=== PATIENT | female | born 1990 | race Caucasian/White ===

== ENCOUNTER 2023-04-29 16:21 | Emergency (ER) | payer BC, SELFPAY ==
[2023-04-29 16:24] VITALS: BP 130/87
[2023-04-29 16:32] LABS: Glucose - Point of Care 69 mg/dl (70-99)
--- NOTE | 2023-04-29 16:49 | ED.GENMED ---
History of Present Illness
<Vickie Becker PA-C - Last Filed: 04/30/23 17:44>
General
Chief Complaint: Blood Sugar Problem
Source: patient
Exam Limitations: none
Time Seen by Provider: 04/29/23 16:32
Nursing documentation reviewed up to this point in time: agreed with
Travel History
Have you had any contact with someone who has COVID-19?: No
Do you have any symptoms of coronavirus? Fever > 100 degrees, chills, cough, shortness of breath, sore throat, loss of taste or smell, muscle aches, or headache?: No
History of Present Illness
History of Present Illness:
Patient is a 32-year-old female with history of type 1 diabetes with continuous glucose monitor/insulin pump presenting for evaluation of low blood sugar readings today. Patient states that she woke up this morning around 730 feeling confused. She
had an alert on her glucose monitor noting that it had failed and she had a blood sugar of 36. She then drank 2 small juice boxes. She started to feel slightly better but has been nauseous and vomiting all day. She had a very mild headache but
took a dose of Tylenol and is feeling better. Her glucose monitor has been showing blood sugar readings within the 90s for most of the day with her most recent fingerstick at home of 76. POC glucose emergency department was 69 on arrival. She
does think she is feeling better since arriving to the emergency department.
She denies any chest pain, shortness of breath, belly pain.
Last menstrual period was April 12.
Past History
<Vickie Becker PA-C - Last Filed: 04/30/23 17:44>
Past History
ED Past Medical History: IDDM
ED Past Surgical History: None
Social History
Tobacco: Non-smoker
Alcohol: None
Personal: Single
Living: with family
Employment: Employed
Family History
Family History: Diabetes
Phy Exam
<Vickie Becker PA-C - Last Filed: 04/30/23 17:44>
Physical Exam
Physical Exam:
General: Well appearing and non-toxic
HEENT: Atraumatic, normocephalic; pupils equal round reactive light bilaterally; dry mucous membranes, protecting airway
Neck: appears supple, no JVD
CV: Regular rate and rhythm, heart sounds normal, no evidence of cyanosis
Resp: No evidence of respiratory distress, lungs clear, no accessory muscle use
Abd: Soft, nontender, no rebound or guarding, non-distended
Extremities: No deformities, no evidence of cyanosis or edema
Neuro: alert and oriented person place time, speech normal, no focal neurologic deficits, no focal motor deficits
Psych: Normal affect
Skin: Intact, no rashes
Course
<Vickie Becker PA-C - Last Filed: 04/30/23 17:44>
Orders/Labs/Results
Orders:
Orders
04/29/23 16:56
0.9% Sodium Chloride 1000 ml [Nss] 1,000 ml IV BOLUS
Test Result ONCE
04/29/23 17:01
Complete Blood Count/With Diff Urgent
Comprehensive Metabolic Panel Urgent
HCG, Serum Qualitative Screen Urgent
Ondansetron Injectable [Zofran] 4 mg IV NOW STA
04/29/23 17:55
Urinalysis Reflex To Culture Urgent
Date Specimen was Collected: 04/29/23
Time Specimen was Collected: 17:54
04/29/23 17:56
0.9% Sodium Chloride 1000 ml [Nss] 1,000 ml IV BOLUS
04/29/23 17:59
Ondansetron Injectable [Zofran] 4 mg IV NOW STA
04/29/23 18:01
Ondansetron Injectable [Zofran] 4 mg .ROUTE .[facility]
Abnormal Lab Results
04/29/23 04/29/23 04/29/23
16:27 17:01 17:55
MPV 10.6 H fL
(7.4-10.4)
Absolute Lymphs (auto) 0.8 L 10^3/uL
(1.2-3.4)
Neutrophils % 85.0 H %
(42.2-75.2)
Lymphocytes % 10.8 L %
(20.5-51.1)
Creatinine 0.5 L mg/dL
(0.6-1.0)
Glucose 103 H mg/dl
(70-99)
Urine Ketones 3+ A
(Negative)
POC Glucose 69 L mg/dl
(70-99)
04/29/23 17:01
04/29/23 17:01
Vital Signs
Initial and Last Documented VS:
Initial Vital Signs
Temp Pulse Resp BP Pulse Ox
98.3 F 77 16 130/87 98
04/29/23 16:24 04/29/23 16:24 04/29/23 16:24 04/29/23 16:24 04/29/23 16:24
Last Documented Vital Signs
Temp Pulse Resp BP Pulse Ox
98.3 F 77 16 130/87 98
04/29/23 16:24 04/29/23 16:24 04/29/23 16:24 04/29/23 16:24 04/29/23 16:24
<Gera Leong DO - Last Filed: 04/30/23 21:45>
Orders/Labs/Results
Orders:
Orders
04/29/23 16:56
0.9% Sodium Chloride 1000 ml [Nss] 1,000 ml IV BOLUS
Test Result ONCE
04/29/23 17:01
Complete Blood Count/With Diff Urgent
Comprehensive Metabolic Panel Urgent
HCG, Serum Qualitative Screen Urgent
Ondansetron Injectable [Zofran] 4 mg IV NOW STA
04/29/23 17:55
Urinalysis Reflex To Culture Urgent
Date Specimen was Collected: 04/29/23
Time Specimen was Collected: 17:54
04/29/23 17:56
0.9% Sodium Chloride 1000 ml [Nss] 1,000 ml IV BOLUS
04/29/23 17:59
Ondansetron Injectable [Zofran] 4 mg IV NOW STA
04/29/23 18:01
Ondansetron Injectable [Zofran] 4 mg .ROUTE .[facility]
Abnormal Lab Results
04/29/23 04/29/23 04/29/23
16:27 17:01 17:55
MPV 10.6 H fL
(7.4-10.4)
Absolute Lymphs (auto) 0.8 L 10^3/uL
(1.2-3.4)
Neutrophils % 85.0 H %
(42.2-75.2)
Lymphocytes % 10.8 L %
(20.5-51.1)
Creatinine 0.5 L mg/dL
(0.6-1.0)
Glucose 103 H mg/dl
(70-99)
Urine Ketones 3+ A
(Negative)
POC Glucose 69 L mg/dl
(70-99)
04/29/23 17:01
04/29/23 17:01
Vital Signs
Initial and Last Documented VS:
Initial Vital Signs
Temp Pulse Resp BP Pulse Ox
98.3 F 77 16 130/87 98
04/29/23 16:24 04/29/23 16:24 04/29/23 16:24 04/29/23 16:24 04/29/23 16:24
Last Documented Vital Signs
Temp Pulse Resp BP Pulse Ox
98.3 F 77 16 130/87 98
02/03/24 16:24 04/29/23 16:24 04/29/23 16:24 04/29/23 16:24 04/29/23 16:24
<Vickie Becker PA-C - Last Filed: 04/30/23 17:44>
MDM/Problems Addressed
Differential Diagnosis Includes:
Hyperglycemia due to pump failure, dehydration, gastroenteritis,
MDM/Problems Addressed:
Patient is a 32-year-old history of type 1 diabetes with insulin pump presenting for low blood sugar readings at home. Her glucose monitor failed last night and when she awoke she had a blood sugar of 36. She drank 2 juices earlier today but has
remained very nauseous with vomiting. She has remained lethargic and feels very dehydrated. Her monitor has been corrected and has been showing glucose readings in the 90s for most of the day. Fingerstick glucose on arrival to emergency
department 69 she is feeling slightly better since arriving to emergency room. Physical exam as document above. She is hemodynamically stable on arrival to emergency department. Abdomen soft and nontender. Very dry mucous membranes. Heart
sounds normal, lungs clear. Will get basic labs, check . Start IV fluids, give 4mg zofran. Will reassess
CBC and CMP without any clinically significant abnormality. Glucose is 103. negative.
Update 5:41 PM: Patient's nausea is improved, she is drinking water and keeping it down. Given clinical appearance�will start second liter of fluids. If patient continues to go to tolerate p.o. intake, remained stable�will plan for discharge.
Patient remains stable and has not vomited since arrival to emergency department. She is tolerating p.o. liquids. She feels ready for discharge. She is stable for discharge with close return precautions, primary care follow-up. Will send
prescription for Zofran if needed for persistent nausea. She is comfortable with this plan. All questions answered.
Chronic conditions affecting care:
Type 1 diabetes mellitus
Acute Exacerbation and/or Progression of Chronic Illness:
Hypoglycemia, acute dehydration
<Vickie Becker PA-C - Last Filed: 04/30/23 17:44>
*Pulse Oximetry
Patient hypoxic: no
*Critical Care Note
Total Time (30-74mins, 75-104mins- exclusive of procedures): Not Applicable
ED Attending Note
<Vickie Becker PA-C - Last Filed: 04/30/23 17:44>
-
Portions of this chart may have been created with voice recognition software.� Occasional wrong word or��sound alike� substitutions may have occurred due to the inherent limitations of voice recognition software.
<Gera Leong DO - Last Filed: 04/30/23 21:45>
ED Attending Note
Patient seen and examined by attending physician: Yes
I performed the substantive portion of visit, reviewed & personally made and approve the management plan that is documented in note by myself or KEE.: Yes
ED Attending Note:
Patient is a 32-year-old type I diabetic who presents with nausea and vomiting as well as low blood sugar. Patient has an insulin pump and the sensor malfunction. Patient's blood sugar is increased but still with nausea and vomiting. Patient
denies abdominal pain, fever, chills. Patient denies any hematemesis, melena or hematochezia. Patient denies any chest pain or shortness of breath. Patient denies any leg pain or swelling. On physical exam the patient is a mild distress
secondary to nausea and vomiting. Patient's heart is regular lungs are clear. Abdomen soft nontender. Extremities without edema or cyanosis. Patient was given Zofran and fluids and her sugar continued to go up. Patient has very good
understanding and management of her type 1 diabetes. Patient was able to be discharged.
Discharge Plan
Departure
Patient Disposition: Home (Routine Discharge)
Date of Disposition: 04/29/23
Time of Disposition: 18:23
Patient with high blood pressure during this ER visit?: Yes
Covid-19: Not Applicable
Discharge Problem:
Acute dehydration, Hypoglycemia
Instructions: Dehydration, Adult (DC), Diabetes Type 1, Adult (DC), BLOOD PRESSURE
Prescriptions:
New
ondansetron 4 mg tablet,disintegrating
4 mg PO Q8H PRN (Reason: nausea and vomiting) Qty: 10 0RF
No Action
PNV cmb#95-ferrous fumarate-FA [] 1 EACH tablet
1 ea PO DAILY
Insulin Pump
1.5 units SC Q1
Calcium + D Soft Chewable Tab
1 tab PO DAILY
acetaminophen 325 MG tablet
650 mg PO Q4HPRN PRN (Reason: mild pain) 0RF
sennosides-docusate sodium 1 TABLET tablet
1 tab PO DAILYPRN PRN (Reason: constipation) Qty: 30 0RF
ferrous sulfate [FeroSul] 325 MG tablet
325 mg PO DAILY Qty: 30 0RF
ibuprofen 600 MG tablet
600 mg PO Q6HPRN PRN (Reason: cramps) Qty: 30 0RF
Referrals:
NONE,* [Family Provider] -
Activity Restrictions/Additional Instructions:
-Return to the emergency department with any high fevers, chest pain, shortness of breath, severe abdominal pain, intractable vomiting, signs of severe dehydration, worsening in current symptoms, or any other concerns
-Stay well hydrated. Continue to monitor blood sugar levels.
-Can take zofran every 8 hours as needed for nausea. This has been sent to your pharmacy.
-Follow-up with primary care for further evaluation / management of your type 1 diabetes
Interventions
Interventions:
*Risk Screen - Suicide Last Done: 04/29/23 16:24
*General Assessment Last Done: 04/29/23 16:24
*Neglect/Abuse Screening Last Done: 04/29/23 16:24
ED- Fall Risk Assessment Last Done: 04/29/23 17:15
*ED COVID-19 Vaccine History Last Done: 04/29/23 17:15
*Nursing Disposition Last Done: 04/29/23 18:36
ED- Neurological Assessment Last Done: 04/29/23 17:21
Discharge Date and Time
Discharge Date/Time: 04/29/23 18:48
[2023-04-29] MEDS: NSS 1000 IV ×2 (17:09→18:02)
[2023-04-29] MEDS: ZOFRAN 4 MG IV ×2 (17:12→18:03)
[2023-04-29 17:14] VITALS: BMI 24.5
[2023-04-29 17:16] LABS: % Basophils 0.1 % (0-2); % Immature Granulocytes 0.1 % (0-0.5); % Lymphocytes 10.8 % (20.5-51.1); Absolute Lymphocytes 0.8 10^3/uL (1.2-3.4); Absolute Monocytes 0.3 10^3/uL (0.1-0.6); Absolute Neutrophils 5.9 10^3/uL (1.4-6.5); Hematocrit 38.2 % (37.0-47.0); Mean Corpuscular Hgb 30.2 pg (27.0-31.0); Mean Corpuscular Volume 88.6 fL (81.0-99.0); Mean Platelet Volume 10.6 fL (7.4-10.4); Nucleated Red Blood Cells % 0 %; Platelet Count 197 10^3/uL (130-400); Red Blood Cell Count 4.31 10^6/uL (4.20-5.40); Red Cell Dist. Width 12.1 % (11.5-14.5)
[2023-04-29 17:26] LABS: HCG, Serum Qualitative Screen Negative
[2023-04-29 17:30] LABS: ALT (SGPT) 19 U/L (0-35); AST (SGOT) 26 U/L (14-36); Albumin 4.3 g/dl (3.5-5.0); Alkaline Phosphatase 43 U/L (38-126); Blood Urea Nitrogen 11 mg/dl (7-17); Calcium 9.1 mg/dl (8.4-10.2); Carbon Dioxide 22 mmol/L (22-30); Chloride 107 mmol/L (98-107); Estimated Creatinine Clearance 100 ml/min; Glucose 103 mg/dl (70-99); Potassium 4.2 mmol/L (3.5-5.1); Sodium 135 mmol/L (135-145); Total Bilirubin 0.7 mg/dl (0.2-1.3); Total Protein 6.7 g/dl (6.3-8.2); eGFR > 60.00
[2023-04-29 18:16] LABS: Urine Albumin Negative (Neg - Trace); Urine Bilirubin Negative (Negative); Urine Character Clear (Clear); Urine Color Straw; Urine Glucose Negative (Negative); Urine Ketone 3+ (Negative); Urine Leukocyte Negative (Negative); Urine Nitrite Negative (Negative); Urine Occult Blood Negative (Negative); Urine Specific Gravity 1.005 (<1.030); Urine Urobilinogen Negative (Neg - 1+)
== END 2023-04-29 18:48 | disposition home or self-care (01) ==
LOC: EMR 16:21
PROVIDERS: Physician Assistant; EMERGENCY PHYSICIAN Emergency Medicine
DX: E86.0 Dehydration (principal); E10.649 Type 1 diabetes mellitus with hypoglycemia without coma; Z83.3 Family history of diabetes mellitus; Z96.41 Presence of insulin pump (external) (internal)
CPT/HCPCS: 99283; 96374; 96375; 96361; 80053; 81003; 82962; 84703; 85025; 96372

== ENCOUNTER → 2023-08-08 09:13 | Outpatient (REF) | payer BC, SELFPAY ==
[2023-08-08 10:12] LABS: ALT (SGPT) 21 U/L (0-35); AST (SGOT) 29 U/L (14-36); Albumin 4.7 g/dl (3.5-5.0); Alkaline Phosphatase 47 U/L (38-126); Blood Urea Nitrogen 15 mg/dl (7-17); Carbon Dioxide 23 mmol/L (22-30); Chloride 104 mmol/L (98-107); Glucose 127 mg/dl (70-99); HDL Cholesterol 75 mg/dl; LDL Cholesterol, Calculated 81 mg/dl; Potassium 4.5 mmol/L (3.5-5.1); Sodium 138 mmol/L (135-145); Total Bilirubin 0.7 mg/dl (0.2-1.3); Total Cholesterol 168 mg/dl (50-199); Total Protein 7.3 g/dl (6.3-8.2); Triglyceride 61 mg/dl (10-149); Very Low Density Lipoprotein 12 mg/dl (0-30); eGFR > 60.00
[2023-08-08 10:41] LABS: TSH 2.09 uIU/ml (0.47-4.68)
[2023-08-08 11:02] LABS: Microalbumin, Random Urine 0.8 mg/dl (0.6-1.7); Microalbumin/creatinine Ratio 24.5 mg/g
[2023-08-08 12:11] LABS: Glycohemoglobin (HgbA1c) 5.6 % (4.0-5.6)
== END ==
LOC: REG 09:13
PROVIDERS: ATTENDING PHYSICIAN Internal Medicine Endocrinology, Diabetes & Metabolism
DX: E10.65 Type 1 diabetes mellitus with hyperglycemia (principal)
CPT/HCPCS: 36415; 80053; 80061; 82043; 82570; 83036; 84443

== ENCOUNTER → 2024-08-22 09:43 | Outpatient (REF) | payer BC, SELFPAY ==
[2024-08-22 11:15] LABS: Glycohemoglobin (HgbA1c) 5.3 % (4.0-5.6)
[2024-08-22 11:26] LABS: ALT (SGPT) 20 U/L (0-35); AST (SGOT) 23 U/L (14-36); Albumin 4.6 g/dl (3.5-5.0); Alkaline Phosphatase 34 U/L (38-126); Blood Urea Nitrogen 18 mg/dl (7-17); Calcium 9.9 mg/dl (8.4-10.2); Carbon Dioxide 25 mmol/L (22-30); Chloride 108 mmol/L (98-107); Glucose 76 mg/dl (70-99); HDL Cholesterol 70 mg/dl; LDL Cholesterol, Calculated 85 mg/dl; Potassium 4.4 mmol/L (3.5-5.1); Sodium 140 mmol/L (135-145); Total Bilirubin 0.4 mg/dl (0.2-1.3); Total Cholesterol 163 mg/dl (50-199); Total Protein 7.1 g/dl (6.3-8.2); Triglyceride 42 mg/dl (10-149); Very Low Density Lipoprotein 8 mg/dl (0-30); eGFR > 60.00
[2024-08-22 11:50] LABS: TSH 1.44 uIU/ml (0.47-4.68)
[2024-08-22 15:06] LABS: Microalbumin, Random Urine 10.1 mg/dl (0.6-1.7)
[2024-08-22 15:09] LABS: Microalbumin/creatinine Ratio 77.9 mg/g
== END ==
LOC: REG 09:43
PROVIDERS: ATTENDING PHYSICIAN Internal Medicine Endocrinology, Diabetes & Metabolism
DX: E10.65 Type 1 diabetes mellitus with hyperglycemia (principal)
CPT/HCPCS: 36415; 80053; 80061; 82043; 82570; 83036; 84443

== ENCOUNTER → 2024-08-23 09:44 | Outpatient (REF) | payer BC, SELFPAY ==
[2024-08-23 11:21] LABS: Microalbumin, Random Urine <0.6 mg/dl (0.6-1.7)
== END ==
LOC: REG 09:44
PROVIDERS: ATTENDING PHYSICIAN Internal Medicine Endocrinology, Diabetes & Metabolism
DX: E10.65 Type 1 diabetes mellitus with hyperglycemia (principal)
CPT/HCPCS: 82043; 82570

== ENCOUNTER → 2024-09-18 12:50 | Outpatient (REF) | payer BC, SELFPAY ==
[2024-09-18 14:10] LABS: % Basophils 0.3 % (0-2); % Eosinophils 0.1 % (0-6); % Immature Granulocytes 0.4 % (0-0.5); % Lymphocytes 22.6 % (20.5-51.1); % Monocytes 5.5 % (1.7-9.3); % Neutrophils 71.1 % (42.2-75.2); Absolute Lymphocytes 1.5 10^3/uL (1.2-3.4); Absolute Monocytes 0.4 10^3/uL (0.1-0.6); Absolute Neutrophils 4.8 10^3/uL (1.4-6.5); Hematocrit 38.5 % (37.0-47.0); Hemoglobin 13.1 g/dL (12.0-16.0); Mean Corpuscular Hgb 29.9 pg (27.0-31.0); Mean Corpuscular Volume 87.9 fL (81.0-99.0); Mean Platelet Volume 10.3 fL (7.4-10.4); Nucleated Red Blood Cells % 0 %; Platelet Count 228 10^3/uL (130-400); Red Blood Cell Count 4.38 10^6/uL (4.20-5.40); Red Cell Dist. Width 12.2 % (11.5-14.5); White Blood Cell Count 6.7 10^3/uL (4.8-10.8)
[2024-09-18 14:21] LABS: Urine Albumin Negative (Neg - Trace); Urine Bilirubin Negative (Negative); Urine Character Clear (Clear); Urine Color Yellow; Urine Glucose Negative (Negative); Urine Ketone 2+ (Negative); Urine Leukocyte Negative (Negative); Urine Nitrite Negative (Negative); Urine Occult Blood Negative (Negative); Urine Urobilinogen Negative (Neg - 1+)
[2024-09-19 18:35] LABS: Hepatitis B Surface Antigen Negative (Negative)
[2024-09-19 18:53] LABS: Hepatitis B Core Ab, Total Negative (Negative); Hepatitis B Surface Antibody Negative; Hepatitis C Antibody Negative (Negative)
[2024-09-19 20:52] LABS: Rubella Positive
[2024-09-20 13:25] LABS: HIV Combo Negative (Negative)
[2024-09-20 14:23] LABS: Syphilis/T. pallidum Ab Reflex Negative (Negative)
== END ==
LOC: REG 12:50
PROVIDERS: ATTENDING PHYSICIAN Nurse Practitioner Family
DX: Z32.01 Encounter for pregnancy test, result positive (principal)
CPT/HCPCS: 36415; 81003; 84702; 85025; 86704; 86706; 86762; 86780; 86803; 86850; 86900; 86901; 87086; 87340; 87389

== ENCOUNTER → 2024-09-19 10:10 | Outpatient (REF) | payer BC, SELFPAY ==
[2024-09-22 06:39] LABS: Aptima Media Type MultiTest Swab; Chlamydia trachomatis by TMA Negative (Negative); Neisseria gonorrhoeae by TMA Negative (Negative); Specimen Source Not Provided
== END ==
LOC: CLAB 10:10
PROVIDERS: ATTENDING PHYSICIAN Nurse Practitioner Family
DX: Z32.01 Encounter for pregnancy test, result positive (principal)
CPT/HCPCS: 87491; 87591

== ENCOUNTER → 2024-10-23 09:33 | Outpatient (REF) | payer BC, SELFPAY ==
[2024-10-23 12:58] LABS: 24 Hour Urine Total Volume 2350 ml
[2024-10-23 13:01] LABS: Height Cm 182.88 CM; Weight Kg 56.7 KG.
[2024-10-23 15:37] LABS: Creat Clear Result 169.3 ml/min (61-166)
== END ==
LOC: RCS 09:33
PROVIDERS: ATTENDING PHYSICIAN Obstetrics & Gynecology
DX: Z34.90 Encounter for supervision of normal pregnancy, unspecified, unspecified trimester (principal); E10.9 Type 1 diabetes mellitus without complications; O09.521 Supervision of elderly multigravida, first trimester
CPT/HCPCS: 81050; 82565; 82570; 82575; 84156; 93005

== ENCOUNTER 2024-10-27 06:59 | Emergency (ER) | payer BC, SELFPAY ==
[2024-10-27 07:01] VITALS: BP 118/75
[2024-10-27 07:18] VITALS: BMI 25.8
--- NOTE | 2024-10-27 07:24 | ED.GENMED ---
History of Present Illness
<CHRISTY Galindo - Last Filed: 10/27/24 13:16>
General
Chief Complaint: Problems
Source: patient
Exam Limitations: none
Time Seen by Provider: 10/27/24 07:07
Nursing documentation reviewed up to this point in time: agreed with
History of Present Illness
History of Present Illness:
Patient is a 33-year-old female with past medical history of being a type I diabetic with insulin pump approximately 12 weeks presents to the ER for evaluation of nausea vomiting. Patient reports she typically will vomit once in the
morning and this has started since 8 weeks of .
However she started vomiting at 8 PM and 9 PM slept intermittently throughout the night. She then reports she has been vomiting again this morning at 5 AM and 6 AM in the car ride here she denies any abdominal pain cramping. Denies any vaginal
bleeding. No sick contacts at home. She does have the shakes but denies any actual fevers. She is followed by [facility], Dr. Perla. She has had an ultrasound which was normal at 8 weeks
Past History
<CHRISTY Galindo - Last Filed: 10/27/24 13:16>
Past History
ED Past Medical History: IDDM
ED Past Surgical History: None
Social History
Tobacco: Non-smoker
Alcohol: None
Personal: Single
Living: with family
Employment: Employed
Family History
Family History: Diabetes
Phy Exam
<CHRISTY Galindo - Last Filed: 10/27/24 13:16>
General Physical Exam
General Presentation: no apparent distress
General age: appears stated age
General Skin: warm and dry
General Habitus: normal
General Mental: alert
General Hydration: dry mucous membranes
Cardiovascular Exam
Cardiovascular Exam: regular rate/rhythm, no murmur and normal peripheral pulses
Pulmonary Exam
Pulmonary Exam: lungs clear and no respiratory distress
Gastrointestinal Exam
Gastrointestinal Exam: non tender and soft
Neurological Exam
Neurological Exam: alert and oriented x3
Musculoskeletal Exam
Musculoskeletal Exam: full ROM
Skin Exam
Skin Exam: normal color and warm/dry
Psychiatric Exam
Psychiatric Exam: normal mood/affect
Course
<CHRISTY Galindo - Last Filed: 10/27/24 13:16>
Orders/Labs/Results
Orders:
Orders
10/27/24 07:24
IV Insert/Care/Rem.- Treatment PRN
0.9% Sodium Chloride 1000 ml [Nss] 1,000 ml IV BOLUS
10/27/24 07:34
Ondansetron Injectable [Zofran] 4 mg IV NOW STA
10/27/24 07:40
Complete Blood Count/With Diff Urgent
Comprehensive Metabolic Panel Urgent
10/27/24 10:51
Urinalysis Reflex To Culture Urgent
Date Specimen was Collected: 10/27/24
Time Specimen was Collected: 10:47
10/27/24 10:52
Ondansetron Injectable [Zofran] 4 mg IV NOW STA
10/27/24 10:53
Ondansetron Injectable [Zofran] 4 mg .ROUTE .[facility]
10/27/24 11:27
Metoclopramide [Reglan] 10 mg IV NOW STA
Abnormal Lab Results
10/27/24 10/27/24
07:40 10:51
Hct 36.9 L %
(37.0-47.0)
MPV 10.5 H fL
(7.4-10.4)
Absolute Lymphs (auto) 1.1 L 10^3/uL
(1.2-3.4)
Neutrophils % 79.6 H %
(42.2-75.2)
Lymphocytes % 15.1 L %
(20.5-51.1)
Carbon Dioxide 21 L mmol/L
(22-30)
BUN 6 L mg/dl
(7-17)
Creatinine 0.4 L mg/dL
(0.6-1.0)
Glucose 101 H mg/dl
(70-99)
Alkaline Phosphatase 33 L U/L
(38-126)
Urine Ketones 2+ A
(Negative)
10/27/24 07:40
10/27/24 07:40
Vital Signs
Initial and Last Documented VS:
Initial Vital Signs
Temp Pulse Resp BP Pulse Ox
98.1 F 78 18 118/75 100
10/27/24 07:01 10/27/24 07:01 10/27/24 07:01 10/27/24 07:01 10/27/24 07:01
Last Documented Vital Signs
Temp Pulse Resp BP Pulse Ox
98.1 F 78 18 118/75 100
10/27/24 07:01 10/27/24 07:01 10/27/24 07:01 10/27/24 07:01 10/27/24 07:30
Regulatory Compliance Engineer consulted with Physician
Regulatory Compliance Engineer consulted with physician?: Yes
Name of Physician Consulted: Walt
Information
Weeks gestation: Weeks: (12)
Location: Location: (uterus )
<Robert Godoy, DO - Last Filed: 10/27/24 07:41>
Orders/Labs/Results
Orders:
Orders
10/27/24 07:24
IV Insert/Care/Rem.- Treatment PRN
0.9% Sodium Chloride 1000 ml [Nss] 1,000 ml IV BOLUS
10/27/24 07:34
Ondansetron Injectable [Zofran] 4 mg IV NOW STA
10/27/24 07:40
Complete Blood Count/With Diff Urgent
Comprehensive Metabolic Panel Urgent
10/27/24 10:51
Urinalysis Reflex To Culture Urgent
Date Specimen was Collected: 10/27/24
Time Specimen was Collected: 10:47
10/27/24 10:52
Ondansetron Injectable [Zofran] 4 mg IV NOW STA
10/27/24 10:53
Ondansetron Injectable [Zofran] 4 mg .ROUTE .[facility]
10/27/24 11:27
Metoclopramide [Reglan] 10 mg IV NOW STA
Abnormal Lab Results
10/27/24 10/27/24
07:40 10:51
Hct 36.9 L %
(37.0-47.0)
MPV 10.5 H fL
(7.4-10.4)
Absolute Lymphs (auto) 1.1 L 10^3/uL
(1.2-3.4)
Neutrophils % 79.6 H %
(42.2-75.2)
Lymphocytes % 15.1 L %
(20.5-51.1)
Carbon Dioxide 21 L mmol/L
(22-30)
BUN 6 L mg/dl
(7-17)
Creatinine 0.4 L mg/dL
(0.6-1.0)
Glucose 101 H mg/dl
(70-99)
Alkaline Phosphatase 33 L U/L
(38-126)
Urine Ketones 2+ A
(Negative)
10/27/24 07:40
10/27/24 07:40
Vital Signs
Initial and Last Documented VS:
Initial Vital Signs
Temp Pulse Resp BP Pulse Ox
98.1 F 78 18 118/75 100
10/27/24 07:01 10/27/24 07:01 10/27/24 07:01 10/27/24 07:01 10/27/24 07:01
Last Documented Vital Signs
Temp Pulse Resp BP Pulse Ox
98.1 F 78 18 118/75 100
10/27/24 07:01 10/27/24 07:01 10/27/24 07:01 10/27/24 07:01 10/27/24 07:30
<CHRISTY Galindo - Last Filed: 10/27/24 13:16>
MDM/Problems Addressed
Differential Diagnosis Includes:
Not limited to hyperemesis gravidarum, viral syndrome dehydration, electrolyte abnormality
MDM/Problems Addressed:
33-year-old female approximate 12 weeks type I diabetic presents for nausea vomiting started last evening into this morning. She appears dry on exam however denies any abdominal cramping vaginal bleeding. She is followed by Dr. Perla
and had a normal ultrasound with this at 8 weeks. She denies any fever chills and is afebrile will check labs. Patient is dry on exam we will give at least 2 L of fluid. We did discuss antiemetics during and she does wish to
try Zofran IV. Bedside ultrasound was done by ED physician to slowly check for heartbeat which was obtained at 140 bpm.
Patient has been medicated here with 2 doses of Zofran and did require Reglan with fluids. She is feeling better after Reglan and fluids and was able to tolerate, oral fluids here in the ER. She is afebrile no acute distress white count is +2
ketones without any evidence of infection. Will DC with outpatient diplegia's with close outpatient follow-up with her [facility].
<CHRISTY Galindo - Last Filed: 10/27/24 13:16>
*Pulse Oximetry
SaO2: 100
Oxygen Mode of Delivery: Room air
Patient hypoxic: no
*Critical Care Note
Total Time (30-74mins, 75-104mins- exclusive of procedures): Not Applicable
ED Attending Note
<CHRISTY Galindo - Last Filed: 10/27/24 13:16>
-
Portions of this chart may have been created with voice recognition software.� Occasional wrong word or��sound alike� substitutions may have occurred due to the inherent limitations of voice recognition software.
<Robert Godoy DO - Last Filed: 10/27/24 07:41>
ED Attending Note
Patient seen and examined by attending physician: Yes
I performed the substantive portion of visit, reviewed & personally made and approve the management plan that is documented in note by myself or KEE.: Yes
ED Attending Note:
I evaluated the patient at bedside. The patient is concerned about dehydration�2 L of IV fluids have been ordered. I also personally performed a quick look bedside ultrasound confirming live IUP with heart rate of 140 bpm.
Discharge Plan
Departure
Patient Disposition: Home (Routine Discharge)
Date of Disposition: 10/27/24
Time of Disposition: 12:15
Patient with high blood pressure during this ER visit?: No
Condition: Fair
Covid-19: Not Applicable
Discharge Problem:
Nausea and vomiting in
Instructions: Hyperemesis Gravidarum (DC)
Prescriptions:
New
doxylamine-pyridoxine (vit B6) [Diclegis] 10-10 mg tablet,delayed release (DR/EC)
2 tab PO DAILY Qty: 20 0RF
Rx Instructions:
2 tablets orally at bedtime; if needed you may increase to 4 tablets orally over the course of the day(1 tablet midmorning and 1 tablet in the mid afternoon)
doxylamine-pyridoxine (vit B6) [Diclegis] 10-10 mg tablet,delayed release (DR/EC)
2 tab PO HS Qty: 20 0RF
No Action
PNV no.95-ferrous fumarate-FA [] 1 EACH tablet
1 ea PO DAILY
Insulin Pump
1.5 units SC Q1
Calcium + D Soft Chewable Tab
1 tab PO DAILY
acetaminophen 325 MG tablet
650 mg PO Q4HPRN PRN (Reason: mild pain) 0RF
sennosides-docusate sodium 1 TABLET tablet
1 tab PO DAILYPRN PRN (Reason: constipation) Qty: 30 0RF
ferrous sulfate [FeroSul] 325 MG tablet
325 mg PO DAILY Qty: 30 0RF
ibuprofen 600 MG tablet
600 mg PO Q6HPRN PRN (Reason: cramps) Qty: 30 0RF
ondansetron 4 mg tablet,disintegrating
4 mg PO Q8H PRN (Reason: nausea and vomiting) Qty: 10 0RF
Referrals:
UNKNOWN - PT DOES,NOT KNOW [Family Provider]
Activity Restrictions/Additional Instructions:
As discussed a prescription for Diclegis was sent to pharmacy take as directed. Take 2 tablets orally at bedtime however you may increase to 4 tablets orally over the next course of the day for more severe nausea (2 tab at bedtime, 1 tablet
midmorning and 1 tablet in mid afternoon if needed)
clear fluids for the next 24 hours follow-up bland solid foods as tolerated
Follow-up closely with your [facility] [employer] return if any worsening of symptoms
Interventions
Interventions:
*Risk Screen - Suicide Last Done: 10/27/24 07:01
*General Assessment Last Done: 10/27/24 07:01
*Neglect/Abuse Screening Last Done: 10/27/24 07:01
*ED COVID-19 Vaccine History Last Done: 10/27/24 07:18
ED-Female Genitourinary Assessment Last Done: 10/27/24 07:18
Discharge Date and Time
Discharge Date/Time: 10/27/24 12:25
Print Language: [place]
[2024-10-27] MEDS: NSS 1000 IV (07:32)
[2024-10-27] MEDS: ZOFRAN 4 MG IV ×2 (07:36→10:55)
[2024-10-27 07:50] LABS: Hematocrit 36.9 % (37.0-47.0); Hemoglobin 12.9 g/dL (12.0-16.0); Mean Corp Hgb Conc. 35.0 g/dL (33.0-37.0); Mean Corpuscular Volume 87.2 fL (81.0-99.0); Nucleated Red Blood Cells % 0 %; Platelet Count 193 10^3/uL (130-400); Red Cell Dist. Width 12.4 % (11.5-14.5)
[2024-10-27 08:02] LABS: ALT (SGPT) 15 U/L (0-35); AST (SGOT) 19 U/L (14-36); Albumin 4.2 g/dl (3.5-5.0); Alkaline Phosphatase 33 U/L (38-126); Blood Urea Nitrogen 6 mg/dl (7-17); Calcium 9.3 mg/dl (8.4-10.2); Carbon Dioxide 21 mmol/L (22-30); Chloride 107 mmol/L (98-107); Estimated Creatinine Clearance 99 ml/min; Glucose 101 mg/dl (70-99); Potassium 3.8 mmol/L (3.5-5.1); Sodium 135 mmol/L (135-145); Total Protein 6.8 g/dl (6.3-8.2); eGFR > 60.00
[2024-10-27 11:14] LABS: Urine Character Clear (Clear)
[2024-10-27] MEDS: REGLAN 10 MG IV (11:31)
== END 2024-10-27 12:25 | disposition home or self-care (01) ==
LOC: EMR 06:59
PROVIDERS: Nurse Practitioner; EMERGENCY PHYSICIAN Emergency Medicine
DX: O21.9 Vomiting of pregnancy, unspecified (principal); O24.111 Pre-existing type 2 diabetes mellitus, in pregnancy, first trimester; Z3A.12 12 weeks gestation of pregnancy; Z83.3 Family history of diabetes mellitus; Z79.4 Long term (current) use of insulin; Z96.41 Presence of insulin pump (external) (internal)
CPT/HCPCS: 99283; 80053; 81003; 85025

== ENCOUNTER → 2024-11-05 11:30 | Outpatient (REF) | payer BC, SELFPAY | LOC: PNTC 11:30 | PROVIDERS: ATTENDING PHYSICIAN Obstetrics & Gynecology | DX: Z36.0 Encounter for antenatal screening for chromosomal anomalies (principal); Z36.82 Encounter for antenatal screening for nuchal translucency | CPT/HCPCS: 76801; 76813 ==

== ENCOUNTER → 2024-11-27 13:25 | Outpatient (REF) | payer BC, SELFPAY | LOC: PNTC 13:25 | PROVIDERS: ATTENDING PHYSICIAN Obstetrics & Gynecology | DX: O24.012 Pre-existing type 1 diabetes mellitus, in pregnancy, second trimester (principal); O09.522 Supervision of elderly multigravida, second trimester; O28.3 Abnormal ultrasonic finding on antenatal screening of mother | CPT/HCPCS: 76805 ==

== ENCOUNTER → 2024-12-02 15:42 | Outpatient (REF) | payer BC, SELFPAY | LOC: PNTC 15:42 | PROVIDERS: ATTENDING PHYSICIAN Obstetrics & Gynecology | DX: O35.9XX0 Maternal care for (suspected) fetal abnormality and damage, unspecified, not applicable or unspecified (principal) | CPT/HCPCS: 59000; 76946 ==

== ENCOUNTER → 2024-12-05 15:26 | Outpatient (REF) | payer BC, SELFPAY | LOC: PNTC 15:26 | PROVIDERS: ATTENDING PHYSICIAN Obstetrics & Gynecology | DX: O35.9XX0 Maternal care for (suspected) fetal abnormality and damage, unspecified, not applicable or unspecified (principal) | CPT/HCPCS: 36415 ==

== ENCOUNTER 2024-12-28 21:41 | Emergency (ER) | payer BC, SELFPAY ==
[2024-12-28 21:41] VITALS: BMI 28.3
[2024-12-28 21:42] VITALS: BP 141/111
[2024-12-28 22:12] LABS: ALT (SGPT) 18 U/L (0-35); AST (SGOT) 26 U/L (14-36); Albumin 4.1 g/dl (3.5-5.0); Alkaline Phosphatase 46 U/L (38-126); Blood Urea Nitrogen 9 mg/dl (7-17); Calcium 9.7 mg/dl (8.4-10.2); Carbon Dioxide 28 mmol/L (22-30); Chloride 107 mmol/L (98-107); Glucose 91 mg/dl (70-99); Hematocrit 37.2 % (37.0-47.0); Hemoglobin 12.7 g/dL (12.0-16.0); Mean Corp Hgb Conc. 34.1 g/dL (33.0-37.0); Mean Corpuscular Volume 88.4 fL (81.0-99.0); Nucleated Red Blood Cells % 0 %; Platelet Count 241 10^3/uL (130-400); Potassium 3.7 mmol/L (3.5-5.1); Red Cell Dist. Width 12.6 % (11.5-14.5); Sodium 140 mmol/L (135-145); Total Protein 7.1 g/dl (6.3-8.2); eGFR > 60.00
[2024-12-28 22:22] LABS: COVID-19 Antigen Negative (Negative)
[2024-12-28 23:29] VITALS: BP 152/126
--- NOTE | 2024-12-28 23:48 | ED.GENMED ---
History of Present Illness
General
Chief Complaint: Fever
Source: patient
Time Seen by Provider: 12/28/24 22:56
History of Present Illness
History of Present Illness:
34-year-old female presents to the emergency room for evaluation of fever. Patient had an elective termination of 3 days ago. 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 Patient has had minimal spotting or
discharge today. She does not have any significant abdominal pain. However she began to feel fevers and chills this evening. She had some low back pain. Patient concerned she was having an infection related to the procedure. She contacted
Pan who is her primary bench assembly inspector who asked her to come to the emergency room for further evaluation. Patient denies any sore throat, cough, dysuria or frequency.
Past History
Past History
ED Past Medical History: IDDM
ED Past Surgical History: None
Social History
Tobacco: Non-smoker
Alcohol: None
Personal: Single
Living: with family
Employment: Employed
Family History
Family History: Diabetes
Phy Exam
Physical Exam
Physical Exam:
General: Awake, Alert, Oriented X3. No acute distress.
Vitals: Mildly tachycardic on arrival however normal heart rate at the time my evaluation
Head: Atraumatic
Eyes: Pupils equal, EOMI
Throat: Airway intact, no exudates
Neck: Trachea midline
Lungs: Clear and equal b/l
Heart: Regular rate, no murmurs
Abd: Soft, Nontender, No pulsatile mass
Neuro: Nonfocal
Skin: Warm, dry, no rash
Extremities: pulses equal b/l, no edema
Sepsis
Sepsis Screening
Sepsis Assessment: Sepsis Ruled Out
Sepsis Screen
Sepsis Screen: Sepsis Ruled Out
Date: 12/29/24
Time: 04:18
Course
Orders/Labs/Results
Orders:
Orders
12/28/24 21:51
Beta HCG Quantitative Urgent
Comment: ADD ON
COVID-19 Antigen Urgent
Source: Nasal Swab
Complete Blood Count/With Diff Urgent
Comprehensive Metabolic Panel Urgent
Lactic Acid Q4H
Comment: ON ICE, CANCEL 2ND ORDER IF FIRST LACTIC ACID LEVEL <2
US Pelvis W Transvag Combined Urgent
Comment: was 20w gestation
Reason For Exam: s/p D&E on 12/26, fever - r/o retained products
12/28/24 21:52
Influenza A+B Rapid Molecular Urgent
JOANN Source: Nasal Swab
Specimen Description:
12/28/24 23:46
Add On- LAB Urgent
Tests Added?: quantitative hcg
12/28/24 23:49
Urinalysis Reflex To Culture Urgent
Date Specimen was Collected: 12/28/24
Time Specimen was Collected: 23:53
12/29/24 01:04
Amoxicillin 875 mg/Clav 125 mg [Augmentin 875 mg/125 mg] 1 tablet PO NOW STA
12/29/24 01:14
Ibuprofen [Motrin] 600 mg .ROUTE .STK-MED ONE
12/29/24 01:15
Ibuprofen [Motrin] 600 mg PO NOW STA
Abnormal Lab Results
12/28/24
21:51
Absolute Neuts (auto) 6.8 H 10^3/uL
(1.4-6.5)
Absolute Lymphs (auto) 1.1 L 10^3/uL
(1.2-3.4)
Neutrophils % 81.8 H %
(42.2-75.2)
Lymphocytes % 13.0 L %
(20.5-51.1)
12/28/24 21:51
12/28/24 21:51
Vital Signs
Initial and Last Documented VS:
Initial Vital Signs
Temp Pulse Resp BP Pulse Ox
98.9 F 117 22 141/111 99
12/28/24 21:42 12/28/24 21:42 12/28/24 21:42 12/28/24 21:42 12/28/24 21:42
Last Documented Vital Signs
Temp Pulse Resp BP Pulse Ox
99.0 F 73 14 110/64 98
12/28/24 23:00 12/29/24 01:00 12/29/24 01:00 12/29/24 01:00 12/29/24 01:00
MDM/Problems Addressed
Differential Diagnosis Includes:
Viral illness, postop fever from atelectasis, endometritis
MDM/Problems Addressed:
Patient presents with fever. She denies significant abdominal pain or change in discharge or bleeding. Her exam is benign. Overall presentation does not seem particularly concerning for endometritis. Discussed with Dr. Chambers who is on-call
for [facility]. She is okay with the patient being discharged. We discussed discharging her with without antibiotics. Patient herself would prefer antibiotic coverage. We settled on Augmentin. Follow-up with Dr. Perla on Monday. Return for
worsening symptoms.
*Radiology
Radiology exam reviewed: radiology read reviewed
*Pulse Oximetry
SaO2: 99
Oxygen Mode of Delivery: Room air
Patient hypoxic: no
*Critical Care Note
Total Time (30-74mins, 75-104mins- exclusive of procedures): Not Applicable
ED Attending Note
-
Portions of this chart may have been created with voice recognition software.� Occasional wrong word or��sound alike� substitutions may have occurred due to the inherent limitations of voice recognition software.
Discharge Plan
Departure
Patient Disposition: Home (Routine Discharge)
Date of Disposition: 12/29/24
Time of Disposition: 01:08
Patient with high blood pressure during this ER visit?: No
Condition: Good
Discharge Problem:
Fever
Instructions: Fever, Adult (DC)
Prescriptions:
New
amoxicillin-pot clavulanate 875-125 mg tablet
1 tab PO BID Qty: 14 0RF
No Action
PNV no.95-ferrous fumarate-FA [] 1 EACH tablet
1 ea PO DAILY
Insulin Pump
1.5 units SC Q1
Calcium + D Soft Chewable Tab
1 tab PO DAILY
acetaminophen 325 MG tablet
650 mg PO Q4HPRN PRN (Reason: mild pain) 0RF
sennosides-docusate sodium 1 TABLET tablet
1 tab PO DAILYPRN PRN (Reason: constipation) Qty: 30 0RF
ferrous sulfate [FeroSul] 325 MG tablet
325 mg PO DAILY Qty: 30 0RF
ibuprofen 600 MG tablet
600 mg PO Q6HPRN PRN (Reason: cramps) Qty: 30 0RF
ondansetron 4 mg tablet,disintegrating
4 mg PO Q8H PRN (Reason: nausea and vomiting) Qty: 10 0RF
doxylamine-pyridoxine (vit B6) [Diclegis] 10-10 mg tablet,delayed release (DR/EC)
2 tab PO DAILY Qty: 20 0RF
Rx Instructions:
2 tablets orally at bedtime; if needed you may increase to 4 tablets orally over the course of the day(1 tablet midmorning and 1 tablet in the mid afternoon)
doxylamine-pyridoxine (vit B6) [Diclegis] 10-10 mg tablet,delayed release (DR/EC)
2 tab PO HS Qty: 20 0RF
Referrals:
Vale Perla, DO [Active, Gynecology]
UNKNOWN,NO INTERVIEW [Family Provider]
Activity Restrictions/Additional Instructions:
Follow up with Dr. Perla on Monday
Interventions
Interventions:
*Risk Screen - Suicide Last Done: 12/28/24 21:42
*General Assessment Last Done: 12/28/24 21:42
*Neglect/Abuse Screening Last Done: 12/28/24 21:42
*ED- Fall Risk Assessment Last Done: 12/29/24 01:24
*ED COVID-19 Vaccine History Last Done: 12/29/24 01:24
*ED Influenza Vaccine History Last Done: 12/29/24 01:24
*Nursing Disposition Last Done: 12/29/24 01:24
ED- Neurological Assessment Last Done: 12/29/24 00:33
ED-Skin Assessment Last Done: 12/29/24 00:33
Discharge Date and Time
Discharge Date/Time: 12/29/24 01:25
Print Language: CROATIAN
[2024-12-29] VITALS: BP 110/54
[2024-12-29 00:21] LABS: Urine Character Clear (Clear)
[2024-12-29 01:00] VITALS: BP 110/64
[2024-12-29 01:03] LABS: Beta HCG Quantitative 578.54 mIU/ml
[2024-12-29] MEDS: MOTRIN 600 MG PO (01:15)
[2024-12-29] MEDS: AUGMENTIN 875 MG/125 MG 1 TABLET PO (01:16)
== END 2024-12-29 01:25 | disposition home or self-care (01) ==
LOC: EMR 21:41
PROVIDERS: Emergency Medicine; EMERGENCY PHYSICIAN Emergency Medicine
DX: R50.9 Fever, unspecified (principal); E10.9 Type 1 diabetes mellitus without complications; Z83.3 Family history of diabetes mellitus
CPT/HCPCS: 99284; 76830; 76856; 80053; 81003; 83605; 84702; 85025; 87502; 87811